=== PATIENT | female | born 1955 | race Caucasian/White ===

== ENCOUNTER 2017-09-15 15:31 | Inpatient (IN) | payer OTHER ==
[~2017-09-15] VITALS: Ht 165.1 cm; Wt 66.2 kg
[2017-09-15] MEDS ORDERED: PANTOPRAZOLE SODIUM IV 40 MG in IV DEXTROSE 5% 100 ML IV ONE (16:32)
--- NOTE | 2017-09-15 16:32 | NUR ---
PT WAS EVALUATEDBY DR HERNANDEZ. PT IS IN ROOM #2B.
[2017-09-15 16:42] LABS: BASOPHILS # (AUTO) 0.1 K/uL (0.0-8.0); BASOPHILS % (AUTO) 1.2 % (0.0-2.0); EOSINOPHILS % (AUTO) 0.8 % (0.0-7.0); HEMATOCRIT 31.5 % (31.2-41.9); HEMOGLOBIN 10.7 g/dL (10.9-14.3); LYMPHOCYTES # (AUTO) 3.6 K/uL (20.0-40.0); MEAN CORPUSCULAR HEMOGLOBIN 30.8 uug (24.7-32.8); MEAN CORPUSCULAR HGB CONC 34 g/dL (32.3-35.6); MEAN CORPUSCULAR VOLUME 90.9 fL (75.5-95.3); MONOCYTES # (AUTO) 0.3 K/uL (2.0-10.0); MONOCYTES % (AUTO) 5.1 % (0.0-11.0); NEUTROPHILS # (AUTO) 1.5 K/uL (1.8-8.9); NEUTROPHILS % (AUTO) 27.9 % (38.5-71.5); PLATELET COUNT (AUTO) 338 K/uL (179-408); RED BLOOD CELL COUNT(AUTO) 3.47 MIL/uL (3.63-4.92); WHITE BLOOD COUNT (AUTO) 5.5 K/uL (3.8-11.8)
[2017-09-15] MEDS ORDERED: PANTOPRAZOLE SODIUM 40 MG VIAL ONE (16:43)
[2017-09-15] MEDS ORDERED: MORPHINE SULFATE 4 MG/1 ML DISP.SYRIN ONE ×2 (16:43→18:25)
[2017-09-15] MEDS ORDERED: ONDANSETRON 4 MG/2 ML VIAL ONE ×2 (16:43→18:26)
[2017-09-15 16:45] LABS: CREATININE 0.7 mg/dL (0.6-1.3); POTASSIUM 3.1 mmol/L (3.5-5.1)
[2017-09-15] MEDS ORDERED: ONDANSETRON IV *ER 4 MG/2 ML VIAL IV ONE ×2 (16:45→18:17)
[2017-09-15] MEDS ORDERED: IV NS 1000 ML 1,000 ML IV ONE ×2 (16:45→19:30)
[2017-09-15] MEDS ORDERED: MORPHINE SULFATE 4 MG/1 ML DISP.SYRIN IV ONE ×2 (16:45→18:17)
[2017-09-15 16:51] LABS: BILIRUBIN,TOTAL 0.7 mg/dL (0.2-1.0); TOTAL PROTEIN, SERUM 6.8 g/dL (6.4-8.2)
[2017-09-15 17:09] LABS: BAND % (MANUAL) 4 % (0-10); EOSINOPHILS % (MANUAL) 1 % (0-8); LYMPHOCYTES % (MANUAL) 67 % (20-40); MONOCYTES % (MANUAL) 6 % (2-10); NEUTROPHILS % (MANUAL) 22 % (42-75)
[2017-09-15] MEDS ORDERED: NORMAL SALINE FLUSH 10 ML DISP.SYRIN ONE (18:35)
[2017-09-15] MEDS ORDERED: IV NORMAL SALINE 100 ML ONE (18:35)
[2017-09-15] MEDS ORDERED: IOHEXOL 300MG/ML 100 ML INFUS..BTL ONE (18:35)
[2017-09-15] MEDS ORDERED: SWABABLE VALVE TRANSFER SET EA MC ONE (18:35)
--- NOTE | 2017-09-15 19:14 | NUR ---
REPORT TAKEN FROM LINDA ENGLE. ASSUMING PT CARE AT THIS TIME.
[2017-09-15] MEDS ORDERED: POTASSIUM CHLORIDE 20 MEQ TAB.PRT.SR PO ONE (19:18)
--- NOTE | 2017-09-15 19:18 | NUR ---
[facility] PAGED FOR PANEL. WAS TOLD LESA KAPADIA WILL CALL BACK.
[2017-09-15 20:03] LABS: *BILIRUBIN,URIN NEGATIVE (NEGATIVE); *BLOOD, URINE NEGATIVE (NEGATIVE); *CLARITY,URINE CLEAR (CLEAR); *COLOR,URINE YELLOW (YELLOW); *KETONES,URINE NEGATIVE (NEGATIVE); *PROTEIN,URINE NEGATIVE (NEGATIVE); *UROBILINOGEN,URINE 0.2 E.U./dl (NORMAL); LEUKOCYTE ESTERASE ,URINE NEGATIVE (NEGATIVE); NITRITE, URINE NEGATIVE (NEGATIVE); UGLUCOSE NEGATIVE (NEGATIVE)
[2017-09-15 20:12] LABS: MUCUS,URINE FEW /LPF (0-FEW); RBC,URINE 0-3 /HPF (0-3); SQUAMOUS EPITHELIAL CELL,UR FEW /HPF (NONE SEEN); WBC,URINE 0-3 /HPF (0-3)
--- NOTE | 2017-09-15 20:12 | NUR ---
REPORT GIVEN TO HOLDEN FERRER RN.
--- NOTE | 2017-09-15 20:21 | NUR ---
Pt. admitted to TELE, under care of Dr. KAPADIA Belongs List completed
[2017-09-15] MEDS ORDERED: ZOLPIDEM 5 MG TABLET PO PRN (20:45)
[2017-09-15] MEDS ORDERED: Z GUARD REMEDY PASTE 57 GM TUBE TOP PRN (20:45)
[2017-09-15] MEDS ORDERED: ACETAMINOPHEN 325 MG TABLET PO PRN (20:45)
[2017-09-15] MEDS ORDERED: MAGNESIUM HYDROXIDE 30 ML LIQUID UDC PO PRN (20:45)
--- NOTE | 2017-09-15 20:45 | NUR ---
In from ER via wheelchair, awake alert & oriented no SOB denies chest pain, Dx. Pancreatitis. Patient still c/o abdominal discomfort 10/10 level of pain. Initial assessment initiated, cardiac specialist applied- showed NSR. BP elevated 165/90. Home meds list obtained, patient stated she is taking BP medication but she forgot the med's name & dose. Paged Epic on-call MD (Ashish Tolentino, ROBERTO) for admission orders.
--- NOTE | 2017-09-15 21:00 | NUR ---
IVF NS at 150 ml/hr infusing well. Medicated w/ Morphine Sulfate 4 mg IVP & Zofran 4mg IVP for N/V.
[2017-09-15] MEDS ORDERED: OMEP40CA37 PO (21:07)
[2017-09-15] MEDS ORDERED: CLON1TAB PO (21:07)
[2017-09-15] MEDS ORDERED: FLUO40CA8 PO (21:07)
[2017-09-15 21:22] VITALS: BP 165/90
[2017-09-15] MEDS: ONDANSETRON 4 MG/2 ML VIAL IV PRN (21:23)
[2017-09-15] MEDS: MORPHINE SULFATE 2 MG/1 ML DISP.SYRIN IV PRN (21:23)
[2017-09-15] MEDS ORDERED: MEROPENEM 1 G VIAL IV ONE (21:41)
[2017-09-15] MEDS: LORAZEPAM 2 MG/1 ML VIAL IV PRN (21:57)
[2017-09-15] MEDS: MEROPENEM 1 G in IV NORMAL SALINE 100 ML IV SCH (22:10)
--- NOTE | 2017-09-15 22:40 | NUR ---
PT RESTING IN BED. NO COMPLAINTS AT THIS TIME. NSR ON TELE MONITORING.
[2017-09-15] MEDS ORDERED: HYDR-4076 PO (22:55)
[2017-09-16 00:30] VITALS: BP 144/81
[2017-09-16] MEDS: MORPHINE SULFATE 2 MG/1 ML DISP.SYRIN IV PRN ×2 (01:44→06:00)
--- NOTE | 2017-09-16 01:50 | NUR ---
Patient still awake, still c/o abdominal discomfort. Morphine 4mg IVP adm. Assisted to the bathroom PRN. Tele Sinus rhythm.
[2017-09-16] MEDS: IV NS 1000 ML 1,000 ML IV PRN ×2 (03:09→23:50)
[2017-09-16 04:43] VITALS: BP 159/81
--- NOTE | 2017-09-16 05:04 | NUR ---
Obtained consent for MRCP procedure today.
[2017-09-16] MEDS ORDERED: MEROPENEM 1 G VIAL IV ONE (05:49)
[2017-09-16] MEDS: MEROPENEM 1 G in IV NORMAL SALINE 100 ML IV SCH ×3 (05:53→21:13)
[2017-09-16 06:11] LABS: BASOPHILS % (AUTO) 0.7 % (0.0-2.0); EOSINOPHILS # (AUTO) 0.1 K/uL (0.0-0.7); EOSINOPHILS % (AUTO) 1.1 % (0.0-7.0); HEMATOCRIT 29.8 % (31.2-41.9); HEMOGLOBIN 9.9 g/dL (10.9-14.3); LYMPHOCYTES # (AUTO) 3.1 K/uL (20.0-40.0); LYMPHOCYTES % (AUTO) 50.2 % (20.5-51.5); MEAN CORPUSCULAR HEMOGLOBIN 30.9 uug (24.7-32.8); MEAN CORPUSCULAR HGB CONC 33 g/dL (32.3-35.6); MEAN CORPUSCULAR VOLUME 92.5 fL (75.5-95.3); MONOCYTES # (AUTO) 0.3 K/uL (2.0-10.0); MONOCYTES % (AUTO) 5.6 % (0.0-11.0); NEUTROPHILS # (AUTO) 2.6 K/uL (1.8-8.9); NEUTROPHILS % (AUTO) 42.4 % (38.5-71.5); PLATELET COUNT (AUTO) 282 K/uL (179-408); RED BLOOD CELL COUNT(AUTO) 3.22 MIL/uL (3.63-4.92); WHITE BLOOD COUNT (AUTO) 6.1 K/uL (3.8-11.8)
[2017-09-16 06:29] LABS: CREATININE 0.7 mg/dL (0.6-1.3); MAGNESIUM 1.8 mg/dL (1.8-2.4); PHOSPHOROUS 4.1 mg/dL (2.5-4.9); POTASSIUM 3.2 mmol/L (3.5-5.1)
[2017-09-16 06:36] LABS: THYROID STIMULATING HORMONE 0.886 mIU/mL (0.358-3.740)
--- NOTE | 2017-09-16 07:20 | NUR ---
Received report from third shift lieutenant nurse, patient in bed awake, reports mild pain at this time, bed in low position, side rails up x2.
[2017-09-16] MEDS: PANTOPRAZOLE SODIUM 40 MG VIAL IV SCH (08:20)
[2017-09-16] MEDS: FLUOXETINE HCL 20 MG CAPSULE PO SCH (08:20)
[2017-09-16] MEDS: LORAZEPAM 2 MG/1 ML VIAL IV PRN ×3 (08:45→23:02)
[2017-09-16] MEDS ORDERED: FLUOXETINE HCL 60 MG PO SCH (09:00)
--- NOTE | 2017-09-16 09:43 | NUR ---
Ambulance scheduled to pick patient up at 10am for transfer to [place] for MRCP.
[2017-09-16] MEDS: MORPHINE SULFATE 4 MG/1 ML DISP.SYRIN IV PRN ×2 (10:02→13:57)
[2017-09-16] MEDS: HYDROCODONE/APAP 5-325MG TABLET PO PRN ×2 (10:02→13:57)
[2017-09-16 10:11] VITALS: BP 177/82
[2017-09-16 12:15] VITALS: BP 160/79
[2017-09-16] MEDS ORDERED: POTASSIUM CHLORIDE 50 ML IV SCH (12:15)
[2017-09-16] MEDS: POTASSIUM CHLORIDE 10 MEQ, LIDOCAINE-MPF 1% 1 ML in IV DEXTROSE 5% 100 ML IV SCH ×4 (13:07→17:04)
[2017-09-16] MEDS: ONDANSETRON 4 MG/2 ML VIAL IV PRN (15:50)
[2017-09-16 16:00] VITALS: BP 150/84
[2017-09-16] MEDS ORDERED: HYDROMORPHONE 1 MG/1 ML DISP.SYRIN IV PRN (18:30)
--- NOTE | 2017-09-16 18:44 | NUR ---
PATIENT HAS BEEN COOPERATIVE WITH CARE THROUGHOUT THE DAY, REQUESTED MEDICATION FREQUENTLY, AND WAS ANXIOUS FREQUENTLY. CURRENTLY PATIENT IN BED, REPORTS PAIN (WILL GIVE NEW MEDICATION) ORDERED BY PHYSICIAN. HYDRALAZINE ORDERED FOR PATIENT DUE TO INCREASED BP.
[2017-09-16 18:49] LABS: BILIRUBIN,DIRECT 0.2 mg/dL (0.0-0.2); BILIRUBIN,TOTAL 0.6 mg/dL (0.2-1.0); TOTAL PROTEIN, SERUM 6.1 g/dL (6.4-8.2)
[2017-09-16] MEDS: hydrALAZINE HCL 25 MG TABLET PO SCH (18:53)
[2017-09-16] MEDS: HYDROMORPHONE 2 MG/1 ML DISP.SYRIN IV PRN ×2 (18:54→23:32)
--- NOTE | 2017-09-16 19:29 | NUR ---
RECEIVED SHIFT REPORT FROM LINDA KLEIN. PT IN BED, NSR ON TELE MONITORING. NO COMPLAINTS AT THIS TIME. WILL MANAGE PAIN WITH IVP ANALGESIC.
--- NOTE | 2017-09-16 19:56 | NUR ---
Patient resting comfortably, still c/o on & off abdominal discomfort. No SOB denies chest pain. Vital signs WNL sinus rhythm on the monitor.
[2017-09-16 20:00] VITALS: BP 141/89
[2017-09-16 22:50] LABS: BILIRUBIN,DIRECT 0.2 mg/dL (0.0-0.2); BILIRUBIN,TOTAL 0.6 mg/dL (0.2-1.0)
[2017-09-16] MEDS: TEMAZEPAM 15 MG CAPSULE PO PRN (23:51)
[2017-09-17] VITALS: BP 152/77
--- NOTE | 2017-09-17 01:38 | NUR ---
PT RESTING IN BED. COMPLAINS OF INTERMITTENT ABDOMINAL PAIN. PAIN MANAGED WITH PRN DILAUDID. NSR ON TELE MONITORING. WILL CONTINUE TO PROVIDE PAIN MANAGEMENT.
[2017-09-17] MEDS: HYDROMORPHONE 2 MG/1 ML DISP.SYRIN IV PRN ×5 (03:36→20:58)
[2017-09-17 04:00] VITALS: BP 136/70
[2017-09-17] MEDS: MEROPENEM 1 G in IV NORMAL SALINE 100 ML IV SCH ×3 (05:12→22:32)
[2017-09-17 06:23] LABS: BASOPHILS # (AUTO) 0.1 K/uL (0.0-8.0); BASOPHILS % (AUTO) 1.5 % (0.0-2.0); EOSINOPHILS # (AUTO) 0.2 K/uL (0.0-0.7); EOSINOPHILS % (AUTO) 3.7 % (0.0-7.0); HEMATOCRIT 31.6 % (31.2-41.9); HEMOGLOBIN 10.7 g/dL (10.9-14.3); LYMPHOCYTES # (AUTO) 2.3 K/uL (20.0-40.0); LYMPHOCYTES % (AUTO) 42.9 % (20.5-51.5); MEAN CORPUSCULAR HEMOGLOBIN 31.4 uug (24.7-32.8); MEAN CORPUSCULAR HGB CONC 34 g/dL (32.3-35.6); MEAN CORPUSCULAR VOLUME 92.5 fL (75.5-95.3); MONOCYTES # (AUTO) 0.4 K/uL (2.0-10.0); MONOCYTES % (AUTO) 6.8 % (0.0-11.0); NEUTROPHILS # (AUTO) 2.4 K/uL (1.8-8.9); NEUTROPHILS % (AUTO) 45.1 % (38.5-71.5); PLATELET COUNT (AUTO) 296 K/uL (179-408); RED BLOOD CELL COUNT(AUTO) 3.41 MIL/uL (3.63-4.92); WHITE BLOOD COUNT (AUTO) 5.3 K/uL (3.8-11.8)
[2017-09-17 06:34] LABS: CREATININE 0.7 mg/dL (0.6-1.3); POTASSIUM 3.3 mmol/L (3.5-5.1)
--- NOTE | 2017-09-17 07:15 | NUR ---
RECEIVED REPORT FROM CAFE MANAGER NURSE, PATIENT IN BATHROOM AT THIS TIME. CHECKED IN WITH PATIENT, NO CONCERNS.
[2017-09-17] MEDS: FLUOXETINE HCL 20 MG CAPSULE PO SCH (08:06)
[2017-09-17] MEDS: PANTOPRAZOLE SODIUM 40 MG VIAL IV SCH (08:06)
[2017-09-17] MEDS: hydrALAZINE HCL 25 MG TABLET PO SCH ×2 (08:15→16:48)
[2017-09-17] MEDS: LORAZEPAM 2 MG/1 ML VIAL IV PRN ×3 (09:45→23:44)
[2017-09-17 11:30] VITALS: BP 163/96
[2017-09-17] MEDS ORDERED: POTASSIUM CHLORIDE 20 MEQ TAB.PRT.SR PO ONE (12:30)
[2017-09-17] MEDS: ONDANSETRON 4 MG/2 ML VIAL IV PRN ×2 (13:46→14:17)
[2017-09-17] MEDS ORDERED: METOCLOPRAMIDE HCL 10 MG/2 ML VIAL IV PRN (14:00)
[2017-09-17] MEDS: METRONIDAZOLE 500 MG/NS 100ML 500 MG in PREMIXED 1 EACH IV SCH ×2 (14:58→21:08)
[2017-09-17] MEDS: HYDROCODONE/APAP 5-325MG TABLET PO PRN ×2 (15:05→23:47)
[2017-09-17] MEDS: IV NS 1000 ML 1,000 ML IV PRN (15:10)
[2017-09-17 15:49] VITALS: BP 178/91
[2017-09-17] MEDS: SUCRALFATE 1 G/10 ML LIQUID UDC GT SCH ×2 (16:48→20:57)
--- NOTE | 2017-09-17 17:49 | NUR ---
patient has been cooperative with care, asking for pain medication around the clock, and asking for ativan. Pain addressed by LICENSED PRACTICAL NURSE INSTRUCTOR Madeline Lan, and Matilde Villafana NP. Currently patient in bed, no severe distress noted, bed in low position, side rails up x2. BP is elevated but steady despite pain medication.
--- NOTE | 2017-09-17 19:10 | NUR ---
RECEIVED PT AWAKE, ALERT, ORIENTEDX4. PT SHOWS NO SIGNS OF DISTRESS. PT IV INTACT AND PATENT. CALL LIGHT WITHIN REACH, BED ALARM ON AND IN LOW POSITION, SIDE RAILS UPX2. WILL CONTINUE TO MONITOR.
[2017-09-17 19:37] VITALS: BP 156/79
[2017-09-18 00:22] LABS: *OCCULT BLOOD STOOL NEGATIVE (NEGATIVE)
[2017-09-18] MEDS: HYDROMORPHONE 2 MG/1 ML DISP.SYRIN IV PRN ×6 (01:31→22:41)
[2017-09-18] MEDS: TEMAZEPAM 15 MG CAPSULE PO PRN (01:40)
[2017-09-18 03:43] VITALS: BP 133/74
[2017-09-18] MEDS: MEROPENEM 1 G in IV NORMAL SALINE 100 ML IV SCH ×3 (05:20→21:18)
[2017-09-18] MEDS: IV NS 1000 ML 1,000 ML IV PRN (06:02)
[2017-09-18] MEDS: METRONIDAZOLE 500 MG/NS 100ML 500 MG in PREMIXED 1 EACH IV SCH ×3 (06:02→22:41)
[2017-09-18] MEDS: PANTOPRAZOLE SODIUM 40 MG TABLET.DR PO SCH (06:02)
--- NOTE | 2017-09-18 06:23 | NUR ---
PT SLEPT INTERMITTENTLY. PT SHOWS NO SIGNS OF DISTRESS. PRESCRIBED MEDICATION GIVEN AND PT TOLERATED IT WELL. SAFETY AND COMFORT PROVIDED.PAIN MANAGEMENT DONE. PT WAS GIVEN 2058H dILAUDID, 2344 H ATIVAN, NORCO 2347H, 0131H DIALUDID AND RESTORIL, DILAUDID [id number].WILL ENDORSE TO DAYSHIFT NURSE.
[2017-09-18] MEDS: SUCRALFATE 1 G/10 ML LIQUID UDC GT SCH ×4 (06:31→21:18)
[2017-09-18 06:41] LABS: BASOPHILS % (AUTO) 0.7 % (0.0-2.0); EOSINOPHILS # (AUTO) 0.2 K/uL (0.0-0.7); EOSINOPHILS % (AUTO) 4.2 % (0.0-7.0); HEMATOCRIT 32.7 % (31.2-41.9); HEMOGLOBIN 11.1 g/dL (10.9-14.3); LYMPHOCYTES # (AUTO) 2.7 K/uL (20.0-40.0); LYMPHOCYTES % (AUTO) 54.1 % (20.5-51.5); MEAN CORPUSCULAR HEMOGLOBIN 31.3 uug (24.7-32.8); MEAN CORPUSCULAR HGB CONC 34 g/dL (32.3-35.6); MONOCYTES # (AUTO) 0.3 K/uL (2.0-10.0); MONOCYTES % (AUTO) 6.5 % (0.0-11.0); NEUTROPHILS # (AUTO) 1.7 K/uL (1.8-8.9); NEUTROPHILS % (AUTO) 34.5 % (38.5-71.5); PLATELET COUNT (AUTO) 328 K/uL (179-408); RED BLOOD CELL COUNT(AUTO) 3.56 MIL/uL (3.63-4.92)
[2017-09-18 06:53] LABS: CREATININE 0.7 mg/dL (0.6-1.3); MAGNESIUM 1.3 mg/dL (1.8-2.4); PHOSPHOROUS 3.4 mg/dL (2.5-4.9); POTASSIUM 3.3 mmol/L (3.5-5.1)
[2017-09-18] MEDS: LORAZEPAM 2 MG/1 ML VIAL IV PRN ×3 (07:02→18:44)
[2017-09-18] MEDS: hydrALAZINE HCL 25 MG TABLET PO SCH ×2 (08:23→16:22)
[2017-09-18] MEDS: FLUOXETINE HCL 20 MG CAPSULE PO SCH (08:23)
[2017-09-18] MEDS: HYDROCODONE/APAP 5-325MG TABLET PO PRN ×4 (08:34→21:18)
[2017-09-18] MEDS: ONDANSETRON 4 MG/2 ML VIAL IV PRN (11:28)
[2017-09-18 11:54] VITALS: BP 155/76
[2017-09-18] MEDS ORDERED: POTASSIUM CHLORIDE 20 MEQ TAB.PRT.SR PO ONE (12:30)
[2017-09-18] MEDS: MAGNESIUM SULFATE/D5W 100 ML IV SCH ×4 (12:40→18:04)
[2017-09-18 16:21] VITALS: BP 134/70
--- NOTE | 2017-09-18 19:30 | NUR ---
RECEIVED SHIFT REPORT FROM LINDA DAVIS. PT IN BED RESTING. NO COMPLAINTS AT THIS TIME. WILL CONTINUE TO MONITOR.
[2017-09-18 19:39] VITALS: BP 142/78
[2017-09-19] MEDS: LORAZEPAM 2 MG/1 ML VIAL IV PRN ×3 (00:58→14:37)
[2017-09-19] MEDS: HYDROCODONE/APAP 5-325MG TABLET PO PRN (03:08)
[2017-09-19] MEDS: IV NS 1000 ML 1,000 ML IV PRN (03:20)
[2017-09-19] MEDS: HYDROMORPHONE 2 MG/1 ML DISP.SYRIN IV PRN ×4 (03:20→16:54)
[2017-09-19 03:43] VITALS: BP 145/77
[2017-09-19] MEDS: METRONIDAZOLE 500 MG/NS 100ML 500 MG in PREMIXED 1 EACH IV SCH ×2 (05:34→14:39)
[2017-09-19 06:31] LABS: BASOPHILS % (AUTO) 0.7 % (0.0-2.0); EOSINOPHILS # (AUTO) 0.1 K/uL (0.0-0.7); EOSINOPHILS % (AUTO) 1.7 % (0.0-7.0); HEMATOCRIT 29.3 % (31.2-41.9); LYMPHOCYTES # (AUTO) 1.5 K/uL (20.0-40.0); LYMPHOCYTES % (AUTO) 34.5 % (20.5-51.5); MEAN CORPUSCULAR HEMOGLOBIN 31.4 uug (24.7-32.8); MEAN CORPUSCULAR HGB CONC 34 g/dL (32.3-35.6); MEAN CORPUSCULAR VOLUME 92.5 fL (75.5-95.3); MONOCYTES # (AUTO) 0.3 K/uL (2.0-10.0); MONOCYTES % (AUTO) 7.5 % (0.0-11.0); NEUTROPHILS # (AUTO) 2.3 K/uL (1.8-8.9); NEUTROPHILS % (AUTO) 55.6 % (38.5-71.5); PLATELET COUNT (AUTO) 287 K/uL (179-408); RED BLOOD CELL COUNT(AUTO) 3.17 MIL/uL (3.63-4.92); WHITE BLOOD COUNT (AUTO) 4.2 K/uL (3.8-11.8)
[2017-09-19] MEDS: SUCRALFATE 1 G/10 ML LIQUID UDC GT SCH ×3 (06:35→16:52)
[2017-09-19] MEDS: PANTOPRAZOLE SODIUM 40 MG TABLET.DR PO SCH (06:35)
[2017-09-19] MEDS: MEROPENEM 1 G in IV NORMAL SALINE 100 ML IV SCH ×2 (06:36→14:43)
[2017-09-19 07:00] LABS: CREATININE 0.6 mg/dL (0.6-1.3); MAGNESIUM 1.8 mg/dL (1.8-2.4); PHOSPHOROUS 3.4 mg/dL (2.5-4.9); POTASSIUM 3.2 mmol/L (3.5-5.1)
[2017-09-19] MEDS: hydrALAZINE HCL 25 MG TABLET PO SCH ×2 (08:00→16:53)
[2017-09-19] MEDS: FLUOXETINE HCL 20 MG CAPSULE PO SCH (08:00)
[2017-09-19] MEDS ORDERED: POTASSIUM CHLORIDE 10 MEQ TAB.PRT.SR PO ONE (11:45)
[2017-09-19] MEDS ORDERED: METR500T PO (11:48)
[2017-09-19] MEDS ORDERED: ONDA4TAB5 PO (11:48)
[2017-09-19] MEDS ORDERED: SUCR1ORA GT (11:48)
[2017-09-19 11:49] VITALS: BP 168/93
[2017-09-19] MEDS ORDERED: CLONIDINE HCL 0.1 MG TABLET PO PRN (12:45)
[2017-09-19] MEDS: ONDANSETRON 4 MG/2 ML VIAL IV PRN (12:47)
[2017-09-19 16:13] VITALS: BP 155/84
--- NOTE | 2017-09-19 18:11 | NUR ---
PT D/C WITH ALL BELONGINGS, VALUABLES,AND EXIT CARE PACKET. PT DC VIA PRIVATE CAR BY EDITH (FRIEND). PT IS AOX3, ID BAND AND IV REMOVED, PT WEARING HER OWN CLOTHES. PT REFUSED A F/U APPOINTMENT STATING THAT SHE HAS A PCP THAT SHE WILL F/U WITH ON HER OWN.
[2017-09-19 18:15] VITALS: BP 145/82
== END 2017-09-19 18:11 | disposition home or self-care (01) | DRG 391 ==
LOC: ER 15:33 → TELE 19:46 → MED 09-17 15:02
PROVIDERS: ADMIT Family Medicine; ATTEND Hospitalist
DX: K52.9 Noninfective gastroenteritis and colitis, unspecified (principal); K85.20 Alcohol induced acute pancreatitis without necrosis or infection; E87.0 Hyperosmolality and hypernatremia; F10.20 Alcohol dependence, uncomplicated; Y90.9 Presence of alcohol in blood, level not specified; Z90.49 Acquired absence of other specified parts of digestive tract; I11.9 Hypertensive heart disease without heart failure; D73.89 Other diseases of spleen; K44.9 Diaphragmatic hernia without obstruction or gangrene; F32.9 Major depressive disorder, single episode, unspecified; Z98.84 Bariatric surgery status; G47.9 Sleep disorder, unspecified; E87.6 Hypokalemia; K80.50 Calculus of bile duct without cholangitis or cholecystitis without obstruction
CPT/HCPCS: 36415; 70030-TC; 71045; 74181; 83690; 83735; 84100; 84443; 85025; 85730; 87046; 87177; 89055; 93005; A4663; C9113; J1170; J2001; J2060; J2185; J2270; J2405; J3475; J3480; J3490; J7030; J7060; Q9967

== ENCOUNTER 2017-09-20 04:55 | Emergency (ER) | payer OTHER ==
[~2017-09-20] VITALS: Ht 165.1 cm; Wt 65.8 kg
[~2017-09-20 04:55] MED LIST: CLON1TAB PO; FLUO40CA8 PO; HYDR-4076 PO; METR500T PO; OMEP40CA37 PO; ONDA4TAB5 PO; SUCR1ORA GT
[2017-09-20] MEDS ORDERED: PANTOPRAZOLE SODIUM 40 MG VIAL IV ONE (05:15)
[2017-09-20] MEDS ORDERED: ONDANSETRON 4 MG/2 ML VIAL IV ONE (05:15)
[2017-09-20] MEDS ORDERED: IV NORMAL SALINE 1000 ML BAG IV ONE (05:15)
[2017-09-20] MEDS ORDERED: MORPHINE SULFATE 2 MG/1 ML DISP.SYRIN IV ONE (05:15)
[2017-09-20] MEDS ORDERED: MORPHINE SULFATE 4 MG/1 ML DISP.SYRIN ONE (05:25)
[2017-09-20] MEDS ORDERED: PANTOPRAZOLE SODIUM 40 MG VIAL ONE (05:25)
[2017-09-20] MEDS ORDERED: ONDANSETRON 4 MG/2 ML VIAL ONE (05:25)
[2017-09-20 06:07] LABS: BASOPHILS % (AUTO) 0.9 % (0.0-2.0); EOSINOPHILS % (AUTO) 0.9 % (0.0-7.0); HEMOGLOBIN 11.5 g/dL (10.9-14.3); LYMPHOCYTES # (AUTO) 1.2 K/uL (20.0-40.0); LYMPHOCYTES % (AUTO) 28.5 % (20.5-51.5); MEAN CORPUSCULAR HEMOGLOBIN 31.4 uug (24.7-32.8); MEAN CORPUSCULAR HGB CONC 35 g/dL (32.3-35.6); MEAN CORPUSCULAR VOLUME 90.3 fL (75.5-95.3); MONOCYTES # (AUTO) 0.3 K/uL (2.0-10.0); MONOCYTES % (AUTO) 6.1 % (0.0-11.0); NEUTROPHILS # (AUTO) 2.8 K/uL (1.8-8.9); NEUTROPHILS % (AUTO) 63.6 % (38.5-71.5); PLATELET COUNT (AUTO) 379 K/uL (179-408); RED BLOOD CELL COUNT(AUTO) 3.65 MIL/uL (3.63-4.92); WHITE BLOOD COUNT (AUTO) 4.4 K/uL (3.8-11.8)
[2017-09-20 06:13] LABS: CREATININE 0.8 mg/dL (0.6-1.3); POTASSIUM 3.3 mmol/L (3.5-5.1)
[2017-09-20 06:18] LABS: BILIRUBIN,DIRECT 0.1 mg/dL (0.0-0.2); BILIRUBIN,TOTAL 0.5 mg/dL (0.2-1.0); TOTAL PROTEIN, SERUM 6.8 g/dL (6.4-8.2)
[2017-09-20 06:18] LABS: *BILIRUBIN,URIN NEGATIVE (NEGATIVE); *BLOOD, URINE NEGATIVE (NEGATIVE); *CLARITY,URINE CLEAR (CLEAR); *COLOR,URINE YELLOW (YELLOW); *KETONES,URINE NEGATIVE (NEGATIVE); *PROTEIN,URINE NEGATIVE (NEGATIVE); *UROBILINOGEN,URINE 0.2 E.U./dl (NORMAL); LEUKOCYTE ESTERASE ,URINE NEGATIVE (NEGATIVE); NITRITE, URINE NEGATIVE (NEGATIVE); UGLUCOSE NEGATIVE (NEGATIVE)
[2017-09-20 06:20] LABS: ETHANOL < 3 MG/DL (0-0)
[2017-09-20 06:28] LABS: BACTERIA,URINE FEW /HPF (NONE SEEN); RBC,URINE 0-3 /HPF (0-3); SQUAMOUS EPITHELIAL CELL,UR MODERATE /HPF (NONE SEEN); WBC,URINE 0-3 /HPF (0-3)
--- NOTE | 2017-09-20 07:36 | NUR ---
pt ambulated to bathroom with steady gait.
--- NOTE | 2017-09-20 08:06 | NUR ---
Ubaldo jensen in ED - 09/20/17 at 0807 by WILBER pt awake, hospital bf trayprovided for pt.
[2017-09-20] MEDS ORDERED: hydrALAZINE HCL 20 MG/1 ML VIAL IV ONE (08:15)
[2017-09-20] MEDS ORDERED: METOCLOPRAMIDE HCL 10 MG/2 ML VIAL IV ONE (08:15)
[2017-09-20] MEDS ORDERED: KETOROLAC TROMETHAMINE 15 MG INJ IVP ONE (08:15)
[2017-09-20] MEDS ORDERED: KETOROLAC TROMETHAMINE 15 MG INJ ONE (08:20)
[2017-09-20] MEDS ORDERED: METOCLOPRAMIDE HCL 10 MG/2 ML VIAL ONE (08:21)
[2017-09-20] MEDS ORDERED: hydrALAZINE HCL 10 MG TABLET ONE (08:26)
[2017-09-20 08:45] VITALS: BP 182/102
[2017-09-20] MEDS ORDERED: hydrALAZINE HCL 10 MG TABLET PO ONE (08:45)
[2017-09-20] MEDS ORDERED: diphenhydrAMINE 50 MG/1 ML VIAL ONE (09:29)
--- NOTE | 2017-09-20 09:34 | NUR ---
pt requesting something to calm the pt. notified.
--- NOTE | 2017-09-20 09:41 | NUR ---
Patient discharged to home in stable conditon. Written and verbal after care instructions given. Patient verbalizes understanding of instructions.pt walks in steady gait. pt waiting for ride to arrive.
[2017-09-20] MEDS ORDERED: diphenhydrAMINE 50 MG/1 ML VIAL IM ONE ×2 (09:45)
== END 2017-09-20 09:44 | disposition home or self-care (01) ==
LOC: ER 04:56
DX: K52.9 Noninfective gastroenteritis and colitis, unspecified (principal); I10 Essential (primary) hypertension; Z79.899 Other long term (current) drug therapy
CPT/HCPCS: 36415; 70030-TC; 71045; 83690; 85025; 93005; A4663; C9113; G0480; J1200; J1885; J2270; J2405; J2765; J7030